=== PATIENT | female | born 1955 | race African-American/Black ===

== ENCOUNTER 2021-04-20 18:27 | Inpatient (IN) | payer BC ==
[2021-04-20] MEDS ORDERED: SODIUM CHLORIDE 0.9% 500 ML 500 ML IV ONE (18:55)
--- NOTE | 2021-04-20 19:26 | ED ---
General Adult HPI - General Chief complaint: Altered Mental Status Stated complaint: Altered Mental Status Time Seen by Provider: 04/20/21 18:48 Source: patient, EMS, RN notes reviewed, old records reviewed Mode of arrival: EMS Limitations: altered mental status - History of Present Illness Initial comments: 65-year-old female presenting with confusion. Patient had apparently left her home in [facility] and was found in the [facility] where she was. Patient is able to give some historical details but her timing is not appropriate. She denies any physical complaints. She is able to say state the year and president as well as her own name and age. She does seem confused though because she states that she had left work and that her son was able to strip picker the car and take it home. No reported fever. No vomiting. No headache or chest pain. According to EMS the patient had a stroke within the past several week. Patient denies this history. - Related Data Home Medications Medication Instructions Recorded Confirmed Aspirin EC [Ecotrin] 325 mg PO DAILY 04/20/21 04/20/21 Gabapentin [Neurontin] 300 mg PO TID 04/20/21 04/20/21 amLODIPine BES/OLMESARTAN MED 1 tab PO DAILY 04/20/21 04/20/21 [amLODIPine BES/OLMESARTAN MED 5-40 mg] metFORMIN HCL 850 mg PO BID 04/20/21 04/20/21 ursodioL [Ursodiol] 300 mg PO BID 04/20/21 04/20/21 Allergies Allergy/AdvReac Type Severity Reaction Status Date / Time No Known Allergies Allergy Verified 04/20/21 20:06 Review of Systems ROS Statement: Those systems with pertinent positive or pertinent negative responses have been documented in the HPI. ROS Other: All systems not noted in ROS Statement are negative. Past Medical History Past Medical History: CVA/TIA, Diabetes Mellitus, Hypertension History of Any Multi-Drug Resistant Organisms: None Reported Past Surgical History: Section Past Psychological History: No Psychological Hx Reported Smoking Status: Current every day smoker Past Alcohol Use History: Occasional Past Drug Use History: None Reported General Exam Limitations: altered mental status General appearance: alert, in no apparent distress Head exam: Present: atraumatic, normocephalic Eye exam: Present: normal appearance, PERRL ENT exam: Present: normal exam Neck exam: Present: normal inspection. Absent: tenderness, meningismus Respiratory exam: Present: normal lung sounds bilaterally. Absent: respiratory distress, wheezes, rales Cardiovascular Exam: Present: regular rate, normal rhythm GI/Abdominal exam: Present: soft. Absent: distended, tenderness, guarding, rebound Extremities exam: Present: normal inspection, normal capillary refill. Absent: pedal edema Neurological exam: Present: alert, CN II-XII intact. Absent: motor sensory deficit Psychiatric exam: Present: normal affect, normal mood Skin exam: Present: warm, dry, intact. Absent: cyanosis, diaphoretic Course Vital Signs 04/20/21 04/20/21 18:28 20:11 Temperature 99.0 F Pulse Rate 72 68 Respiratory 18 16 Rate Blood Pressure 139/81 132/84 O2 Sat by Pulse 99 Oximetry EKG Findings - EKG Comments: EKG Findings:: EKG: Normal sinus rhythm, left axis deviation, rate of 81, OR interval 162 with QRS duration 84, QTC 432 Medical Decision Making - Medical Decision Making 65-year-old female with confusion, history of recent stroke. The exact details surrounding this are not known. I did attempt to contact the patient's spouse and son with a number on the medical record but this number was disconnected. Patient is confused although she is answering some questions appropriately. She has a nonfocal neurologic exam. Head CT shows a subacute infarct which is consistent with a history reported of recent stroke. She has a normal CBC, normal CMP. She will be admitted for further evaluation and for the patient's safety. Urinalysis pending Case discussed with Dr. Monsivais - Lab Data Result diagrams: 04/20/21 19:13 04/20/21 19:13 Lab Results 04/20/21 04/20/21 04/20/21 Range/Units 19:13 19:13 19:13 WBC 9.8 (3.8-10.6) k/uL RBC 4.34 (3.80-5.40) m/uL Hgb 13.3 (11.4-16.0) gm/dL Hct 38.9 (34.0-46.0) % MCV 89.6 (80.0-100.0) fL MCH 30.7 (25.0-35.0) pg MCHC 34.3 (31.0-37.0) g/dL RDW 13.4 (11.5-15.5) % Plt Count 377 (150-450) k/uL MPV 7.7 Neutrophils % 58 % Lymphocytes % 29 % Monocytes % 6 % Eosinophils % 5 % Basophils % 1 % Neutrophils # 5.7 (1.3-7.7) k/uL Lymphocytes # 2.8 (1.0-4.8) k/uL Monocytes # 0.6 (0-1.0) k/uL Eosinophils # 0.5 (0-0.7) k/uL Basophils # 0.1 (0-0.2) k/uL PT 10.5 (9.0-12.0) sec INR 1.0 (<1.2) APTT 23.7 (22.0-30.0) sec Sodium 138 (137-145) mmol/L Potassium 4.3 (3.5-5.1) mmol/L Chloride 104 (98-107) mmol/L Carbon Dioxide 21 L (22-30) mmol/L Anion Gap 13 mmol/L BUN 20 H (7-17) mg/dL Creatinine 0.57 (0.52-1.04) mg/dL Est GFR (CKD-EPI)AfAm >90 (>60 ml/min/1.73 sqM) Est GFR (CKD-EPI)NonAf >90 (>60 ml/min/1.73 sqM) Glucose 155 H (74-99) mg/dL Calcium 10.4 H (8.4-10.2) mg/dL Total Bilirubin 0.3 (0.2-1.3) mg/dL AST 19 (14-36) U/L ALT 20 (4-34) U/L Alkaline Phosphatase 78 (38-126) U/L Total Protein 7.8 (6.3-8.2) g/dL Albumin 4.7 (3.5-5.0) g/dL Serum Alcohol <10 mg/dL Disposition Clinical Impression: Altered mental status, CVA (cerebral vascular accident) Disposition: ADMITTED IP TO THIS [facility] Condition: Stable Is patient prescribed a controlled substance at d/c from ED?: No Referrals: None,Stated [Primary Care Provider] - 1-2 days Decision to Admit Reason: Admit from EC Decision Date: 04/20/21 Decision Time: 20:31
--- NOTE | 2021-04-20 19:48 | CT ---
EXAMINATION TYPE: CT brain wo con DATE OF EXAM: 04/20/2021 COMPARISON: None HISTORY: There is hypodensity that measures 3.4 x 2 cm in the anterior right internal capsule and rig ht caudate nucleus. There is extension into the inferior right frontal lobe. There is no midline shif t. There is no significant mass effect. There is no sign of intracranial hemorrhage. Sella turcica ap pears normal. There is no evidence of posterior fossa mass. Calvarium is intact. IMPRESSION: Hypodense area with subacute infarct in the right internal capsule right caudate nucleus and inferior anterior right frontal lobe. CT DLP: 1047.4 mGycm Automated exposure control for dose reduction was used.
[2021-04-20 20:02] LABS: Basophils # (A) 0.1 k/uL (0-0.2); Basophils % (A) 1 %; Eosinophils # (A) 0.5 k/uL (0-0.7); Eosinophils % (A) 5 %; HCT 38.9 % (34.0-46.0); HGB 13.3 gm/dL (11.4-16.0); Lymphocytes # (A) 2.8 k/uL (1.0-4.8); Lymphocytes % (A) 29 %; MCH 30.7 pg (25.0-35.0); MCHC 34.3 g/dL (31.0-37.0); MCV 89.6 fL (80.0-100.0); Mean Platelet Volume 7.7; Monocytes # (A) 0.6 k/uL (0-1.0); Monocytes % (A) 6 %; Neutrophils # (A) 5.7 k/uL (1.3-7.7); Neutrophils % (A) 58 %; Platelet Count 377 k/uL (150-450); RBC 4.34 m/uL (3.80-5.40); RDW 13.4 % (11.5-15.5); WBC 9.8 k/uL (3.8-10.6)
[2021-04-20] MEDS ORDERED: ASPIRIN 325 MG TAB PO STA (20:16)
[2021-04-20 20:24] LABS: Partial Thromboplastin Time 23.7 sec (22.0-30.0); Prothrombin Time 10.5 sec (9.0-12.0)
[2021-04-20 20:28] LABS: ALT 20 U/L (4-34); AST 19 U/L (14-36); African American GFR (CKD) >90 (>60 ml/min/1.73 sqM); Albumin 4.7 g/dL (3.5-5.0); Alcohol <10 mg/dL; Alkaline Phosphatase 78 U/L (38-126); Anion Gap 13 mmol/L; Blood Urea Nitrogen 20 mg/dL (7-17); Calcium 10.4 mg/dL (8.4-10.2); Carbon Dioxide 21 mmol/L (22-30); Chloride 104 mmol/L (98-107); Glucose 155 mg/dL (74-99); Non-African American GFR(CKD) >90 (>60 ml/min/1.73 sqM); Potassium 4.3 mmol/L (3.5-5.1); Sodium 138 mmol/L (137-145); Total Bilirubin 0.3 mg/dL (0.2-1.3); Total Protein 7.8 g/dL (6.3-8.2)
[2021-04-20 20:35] LABS: Appearance,Urine Cloudy (Clear); Bilirubin,Urine Negative (Negative); Blood,Urine Small (Negative); Budding Yeast,Urine Rare /hpf; Color,Urine Yellow; Glucose,Urine (UA) Negative (Negative); Hyaline Casts,Urine 5 /lpf (0-2); Ketones,Urine Negative (Negative); Leukocyte Esterase,Urine Large (Negative); Mucus,Urine Occasional /hpf; Nitrite,Urine Negative (Negative); PH, Urine 5.5 (5.0-8.0); Protein,Urine Trace (Negative); RBC,Urine 45 /hpf (0-5); Squamous Epithelial Cell,Urine 3 /hpf (0-4); Urobilinogen,Urine <2.0 mg/dL (<2.0); WBC,Urine 73 /hpf (0-5)
[2021-04-20 20:40] LABS: Amphetamine Screen,Urine Not Detected (NotDetected); Barbiturate Screen,Urine Not Detected (NotDetected); Benzodiazepines Screen,Urine Not Detected (NotDetected); Cocaine Screen,Urine Not Detected (NotDetected); Methadone Screen, Urine Not Detected (NotDetected); Opiate Screen,Urine Not Detected (NotDetected); Oxycodone Screen, Urine Not Detected (NotDetected); Phencyclidine Screen,Urine Not Detected (NotDetected); Tricyclic Antidepressant,Urine Not Detected (NotDetected); Urn Cannabinoid Scrn Not Detected (NotDetected)
[2021-04-20] MEDS: SODIUM CHLORIDE 0.9% 1,000 ML IV SCH (20:49)
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
[2021-04-21 05:56] LABS: Glucose,Whole Blood 136 mg/dL (75-99)
[2021-04-21] MEDS: INSULIN ASPART (NovoLOG) 100 UNIT/ML VIAL SQ SCH ×4 (06:47→21:01)
[2021-04-21 07:49] LABS: Basophils % (A) 1 %; Eosinophils # (A) 0.6 k/uL (0-0.7); Eosinophils % (A) 7 %; HCT 34.8 % (34.0-46.0); HGB 11.6 gm/dL (11.4-16.0); Lymphocytes # (A) 2.9 k/uL (1.0-4.8); Lymphocytes % (A) 37 %; MCH 30.1 pg (25.0-35.0); MCHC 33.5 g/dL (31.0-37.0); MCV 90.1 fL (80.0-100.0); Monocytes # (A) 0.5 k/uL (0-1.0); Monocytes % (A) 7 %; Neutrophils # (A) 3.6 k/uL (1.3-7.7); Neutrophils % (A) 47 %; Platelet Count 345 k/uL (150-450); RBC 3.86 m/uL (3.80-5.40); RDW 13.4 % (11.5-15.5); WBC 7.7 k/uL (3.8-10.6)
[2021-04-21 08:02] LABS: ALT 16 U/L (4-34); AST 19 U/L (14-36); African American GFR (CKD) >90 (>60 ml/min/1.73 sqM); Albumin 3.9 g/dL (3.5-5.0); Alkaline Phosphatase 66 U/L (38-126); Anion Gap 7 mmol/L; Blood Urea Nitrogen 16 mg/dL (7-17); Calcium 9.6 mg/dL (8.4-10.2); Carbon Dioxide 22 mmol/L (22-30); Chloride 111 mmol/L (98-107); Glucose 139 mg/dL (74-99); Non-African American GFR(CKD) >90 (>60 ml/min/1.73 sqM); Potassium 3.9 mmol/L (3.5-5.1); Sodium 140 mmol/L (137-145); Total Bilirubin 0.4 mg/dL (0.2-1.3); Total Protein 6.7 g/dL (6.3-8.2)
[2021-04-21] MEDS: LOSARTAN 50 MG TAB PO SCH (08:33)
[2021-04-21] MEDS: GABAPENTIN 300 MG CAP PO SCH ×3 (08:33→21:01)
[2021-04-21] MEDS: ASPIRIN 81 MG PO SCH (08:33)
[2021-04-21] MEDS: amLODIPine 5 MG TAB PO SCH (08:34)
[2021-04-21] MEDS: SODIUM CHLORIDE 0.9% 1,000 ML IV SCH (08:36)
[2021-04-21] MEDS ORDERED: levETIRAcetam IV 1,000 MG in SALINE 1 100ML.BAG IVPB STA (08:59)
[2021-04-21] MEDS ORDERED: ASPIRIN 325 MG TAB PO SCH ×2 (09:00)
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
[2021-04-21 10:21] LABS: T4, Free (Free Thyroxine) 1.67 ng/dL (0.78-2.19)
[2021-04-21 11:37] LABS: Glucose,Whole Blood 137 mg/dL (75-99)
[2021-04-21 12:19] LABS: Chol/HDL Ratio 8.46; Cholesterol 220 mg/dL (0-200); LDL Cholesterol,Calculated 150.6 mg/dL (0.0-131.0)
--- NOTE | 2021-04-21 12:38 | P.PN ---
Subjective Progress Note Date: 04/21/21 No new complaints. Pt is alert and oriented x 3. Pending EEG, Echo, MRI. Objective - Vital Signs Vital signs: Vital Signs Temp 98.4 F 04/21/21 08:00 Pulse 52 L 04/21/21 11:38 Resp 18 04/21/21 11:38 BP 103/60 04/21/21 11:38 Pulse Ox 97 04/21/21 11:38 Intake & Output 04/20/21 04/21/21 04/21/21 18:59 06:59 18:59 Weight 54.431 kg 51.25 kg Other: Voiding Method Toilet Toilet # Voids 0 - Exam Gen: awake, alert HEENT: normocephalic, atraumatic, good hearing acuity, moist mucous membranes Resp: good air exchange, breathing comfortably with no accessory muscle use CVS: good distal perfusion x 4, GI: soft, NTTP, ND : no SPT, no CVAT, toscano catheter not present MSK: no pitting edema, no clubbing Neuro: non-focal, moving all extremities Psych: cooperative, euthymic mood - Labs CBC & Chem 7: 04/21/21 06:58 04/21/21 06:58 Labs: Abnormal Lab Results - Last 24 Hours (Table) 04/20/21 04/20/21 04/20/21 Range/Units 19:13 19:13 19:13 Chloride (98-107) mmol/L Carbon Dioxide 21 L (22-30) mmol/L BUN 20 H (7-17) mg/dL Creatinine (0.52-1.04) mg/dL Glucose 155 H (74-99) mg/dL POC Glucose (mg/dL) (75-99) mg/dL Calcium 10.4 H (8.4-10.2) mg/dL Triglycerides (0.0-149.0) mg/dL Cholesterol (0-200) mg/dL LDL Cholesterol, Calc (0.0-131.0) mg/dL VLDL Cholesterol, Calc (5.00-40.00) mg/dL HDL Cholesterol (40.0-60.0) mg/dL TSH <0.015 L (0.465-4.680) mIU/L Urine Appearance Cloudy H (Clear) Urine Protein Trace H (Negative) Urine Blood Small H (Negative) Ur Leukocyte Esterase Large H (Negative) Urine RBC 45 H (0-5) /hpf Urine WBC 73 H (0-5) /hpf Hyaline Casts 5 H (0-2) /lpf Urine Mucus Occasional H (None) /hpf Urine Yeast (Budding) Rare H (None) /hpf 04/21/21 04/21/21 04/21/21 Range/Units 05:53 06:58 11:33 Chloride 111 H (98-107) mmol/L Carbon Dioxide (22-30) mmol/L BUN (7-17) mg/dL Creatinine 0.42 L (0.52-1.04) mg/dL Glucose 139 H (74-99) mg/dL POC Glucose (mg/dL) 136 H 137 H (75-99) mg/dL Calcium (8.4-10.2) mg/dL Triglycerides 217.0 H (0.0-149.0) mg/dL Cholesterol 220 H (0-200) mg/dL LDL Cholesterol, Calc 150.6 H (0.0-131.0) mg/dL VLDL Cholesterol, Calc 43.40 H (5.00-40.00) mg/dL HDL Cholesterol 26.0 L (40.0-60.0) mg/dL TSH (0.465-4.680) mIU/L Urine Appearance (Clear) Urine Protein (Negative) Urine Blood (Negative) Ur Leukocyte Esterase (Negative) Urine RBC (0-5) /hpf Urine WBC (0-5) /hpf Hyaline Casts (0-2) /lpf Urine Mucus (None) /hpf Urine Yeast (Budding) (None) /hpf Microbiology - Last 24 Hours (Table) 04/20/21 19:13 Urine Culture - Preliminary Urine,Voided Assessment and Plan Assessment: Delirium Subacute Ischemic Stroke -Admit to telemetry -Neurochecks -Neurology consult -Echo pending -Carotid ultrasound pending -MRI of the brain pending -Aspirin, statin -PT/OT -EEG pending -Keppra twice a day DM Type II HTN -Home medications reviewed and reconciled -Continue amlodipine, losartan -Continue gabapentin -Hold metformin; Accu-Cheks qAC/HS, low-dose sliding scale insulin CODE STATUS: Full code DVT prophylaxis: Mechanical Anticipated length of stay more than [address]: Pending clinical course
--- NOTE | 2021-04-21 13:03 | US ---
EXAMINATION TYPE: US carotid duplex BILAT DATE OF EXAM: 04/21/2021 COMPARISON: NONE CLINICAL HISTORY: 65-year-old female subacute stroke. General Manager In Training notes: Exam done portable. EXAM MEASUREMENTS: RIGHT: Peak Systolic Velocity (PSV) cm/sec ----- Right CCA: 28.9 ----- Right ICA: 65.6 ----- Right ECA: 40.4 ICA/CCA ratio: 2.3 RIGHT: End Diastole cm/sec ----- Right CCA: 6.8 ----- Right ICA: 22.1 ----- Right ECA: 7.9 LEFT: Peak Systolic Velocity (PSV) cm/sec ----- Left CCA: 64.0 ----- Left ICA: 86.2 ----- Left ECA: 25.2 ICA/CCA ratio: 1.3 LEFT: End Diastole cm/sec ----- Left CCA: 18.3 ----- Left ICA: 35.8 ----- Left ECA: 5.9 VERTEBRALS (direction of flow): Right Vertebral: Antegrade Left Vertebral: Antegrade Rhythm: Normal General Manager In Training notes: No elevated velocities. Right ICA/CCA ratio 2.3 Mild atherosclerotic change at both bifurcations. IMPRESSION: No hemodynamically significant internal carotid artery stenosis on either side. Criteria for Assigning % of Stenosis / Diameter reduction (Estimation based on the indirect measurements of the internal carotid artery velocities (ICA PSV). 1. Normal (no stenosis)=ICA PSV < 125 cm/s: ratio < 2.0: ICA EDV<40 cm/s. 2. Less than 50% stenosis=ICA PSV < 125 cm/s: ratio < 2.0: ICA EDV<40 cm/s. 3. 50 to 69% stenosis=ICA PSV of 125 to 230 cm/s: ration 2.0 ? 4.0: ICA EDV 40-100 cm/s. 4. Greater than 70% stenosis to near occlusion= ICA PSV > 230 cm/s: ratio > 4.0: ICA EDV > 100 cm/s. 5. Near occlusion= ICA PSV velocities may be low or undetectable: variable ratio and ICA EDV. 6. Total occlusion=unable to detect flow.
--- NOTE | 2021-04-21 13:32 | ECHOF ---
Referral Reason:subacute stroke MEASUREMENTS -------- HEIGHT: 152.4 cm WEIGHT: 50.8 kg BP: IVSd: 1.0 cm (0.6 - 1.1) LVIDd: 3.8 cm (3.9 - 5.3) LVPWd: 1.3 cm (0.6 - 1.1) IVSs: 1.3 cm LVIDs: 3.0 cm LVPWs: 1.0 cm LAESV Index (A-L): 25.18 ml/m MV EXCURSION: 12.842 mm (> 18.000) MV EF SLOPE: 72 mm/s (70 - 150) EPSS: 0.3 cm MV E Guru: 0.69 m/s MV DecT: 211 ms MV A Guru: 1.00 m/s MV E/A Ratio: 0.69 AV maxP.60 mmHg AV meanP.75 mmHg RAP: 5.00 mmHg RVSP: 28.50 mmHg FINDINGS -------- Sinus rhythm. This was a technically good study. LV size, wall thickness and systolic function are normal, with an EF greater than 55%. The left phil tricular size is normal. The right ventricle is normal in size. The left atrial size is normal. The right atrial size is normal. There is mild aortic stenosis present. Peak/mean gradient across the Aortic Valve is 18.60mmHg / 9. 75mmHg. Mild mitral annular calcification present. Mild mitral regurgitation is present. Mild tricuspid regurgitation present. Right ventricular systolic pressure is normal at < 35 mmHg. The pulmonic valve was not well visualized. There is no pericardial effusion. CONCLUSIONS -------- 1. LV size, wall thickness and systolic function are normal, with an EF greater than 55%. 2. The left ventricular size is normal. 3. The right ventricle is normal in size. 4. The left atrial size is normal. 5. The right atrial size is normal. 6. There is mild aortic stenosis present. 7. Peak/mean gradient across the Aortic Valve is 18.60mmHg / 9.75mmHg. 8. Mild mitral annular calcification present. 9. Mild mitral regurgitation is present. 10. Mild tricuspid regurgitation present. 11. The pulmonic valve was not well visualized. 12. There is no pericardial effusion. PORTABLE TRACKMAN: Natalie Andrews RDCS
[2021-04-21 15:39] LABS: Folate, Serum 20.5 ng/mL
--- NOTE | 2021-04-21 15:44 | MR ---
EXAMINATION TYPE: MR brain wo/w con DATE OF EXAM: 04/21/2021 COMPARISON: CT brain 04/20/2021 HISTORY: Altered mental status, Hx of stroke, R/o mass TECHNIQUE: Multiplanar, multisequence images of the brain and brainstem is performed without and with IV contras t, utilizing 5 mL intravenous Gadavist . FINDINGS: Diffusion weighted images demonstrate multiple areas of diffusion restriction and enhanceme nt, most notably within the right basal ganglia extending into the right frontal lobe and right front al cortex. Area measures approximately 3.5 cm in the right frontal lobe and 2.6 cm in the right basal ganglia. Additional vague areas of diffusion restriction and enhancement in the white matter adjacen t to the right lateral ventricle. A smaller 6 mm area of diffusion restriction and enhancement within the deep left white matter adjacent to the posterior margin of the body of the left lateral ventricl e. There is mass effect and compression of the anterior horn of the right ventricle. Ventricular syst em is similar size relative to the recent CT scan. Dural venous sinuses enhance normally. Vertebral basilar and carotid systems appear patent. Mild generalized degenerative change and multiple focal areas of nonspecific white matter changes mos t typical of remote microvascular ischemia. Changes of chronic sinusitis are noted in the orbits are symmetric. Midline structures demonstrate normal morphology. The craniocervical junction appears within normal limits. Vague enhancement in the left cerebellar hemisphere on image #16 2 small to characterize may represen t additional focus of pathologic enhancement and possible subacute ischemia. Follow-up to resolution recommended to exclude underlying neoplastic process. IMPRESSION: 1. Multiple areas of diffusion restriction and enhancement involving the right frontal lobe, right ba virgen ganglia, and left parietal lobe and questionably within the left cerebellum. Constellation of fin dings favor ischemia although neoplasm not excluded. Favor subacute ischemia. There is compression of the frontal horn of right lateral ventricle. Comparison with the outside exam is recommended to eval uate for any change in appearance relative to the prior exam and help in differentiating the possibil ity of subacute ischemia versus neoplastic process. Short-term follow-up MRI recommended. Case was d iscussed with Dr. Mckeon. 2. Degenerative and nonspecific white matter changes most typical remote ischemia.
[2021-04-21 16:20] LABS: Hemoglobin A1C 8.1 % (4.0-6.0)
[2021-04-21 16:43] LABS: Glucose,Whole Blood 140 mg/dL (75-99)
[2021-04-21] MEDS: CLOPIDOGREL 75 MG TAB PO SCH (17:26)
--- NOTE | 2021-04-21 17:37 | EEG ---
ELECTROENCEPHALOGRAM REPORT DATE OF SERVICE: 04/21/2021. CLINICAL HISTORY: This is a 65-year-old woman with recent history of stroke over the right frontal region that presented to the emergency department for confusion. This video EEG is obtained to evaluate for seizure epileptiform activity. RELEVANT MEDICATION: Keppra. EEG TYPE: A routine 21 channel EEG was performed with video using the 10/20 electrode lead system. DESCRIPTION: Wakefulness and drowsiness are obtained. During wakefulness, there is a posterior dominant rhythm of low to moderate voltage, reactive, well modulated, 9-10 hertz activity. During drowsiness, there is slowing and attenuation of background activity. There is no physiological stage 2 sleep architecture. There is occasional delta/theta slowing over the right frontal temporal leads. Interictal and ictal is none. ACTIVATION PROCEDURES: Photic stimulation did not evoke a posterior driving response. Hyperventilation is not performed. CLINICAL INTERPRETATION: This is an abnormal routine EEG. There is focal slowing over the right frontal temporal derivative which is consistent with the patient history of recent stroke. There are no focal slowing, epileptiform discharges or seizure on the EEG. Otherwise, the patient's background is normal. Clinical correlation is recommended. MMODL / IJN: [id number] / MTDD
[2021-04-21 20:05] LABS: Glucose,Whole Blood 195 mg/dL (75-99)
[2021-04-21] MEDS ORDERED: ATORVASTATIN 40 MG TAB PO SCH (21:00)
[2021-04-21] MEDS: ursodioL 300 MG CAP PO SCH (21:01)
[2021-04-21] MEDS: levETIRAcetam 500 MG TAB PO SCH (21:01)
[2021-04-21] MEDS: ATORVASTATIN 80 MG TAB PO SCH (21:01)
[2021-04-22 05:58] LABS: Glucose,Whole Blood 154 mg/dL (75-99)
[2021-04-22] MEDS: INSULIN ASPART (NovoLOG) 100 UNIT/ML VIAL SQ SCH ×4 (06:53→21:23)
[2021-04-22] MEDS: GABAPENTIN 300 MG CAP PO SCH ×3 (08:40→21:23)
[2021-04-22] MEDS: ursodioL 300 MG CAP PO SCH ×2 (08:40→21:23)
[2021-04-22] MEDS: CLOPIDOGREL 75 MG TAB PO SCH (08:40)
[2021-04-22] MEDS: levETIRAcetam 500 MG TAB PO SCH ×2 (08:40→21:23)
[2021-04-22] MEDS: ASPIRIN 81 MG PO SCH (08:40)
[2021-04-22] MEDS: SODIUM CHLORIDE 0.9% 1,000 ML IV SCH ×2 (08:41→17:01)
[2021-04-22] MEDS: LOSARTAN 50 MG TAB PO SCH (08:43)
[2021-04-22] MEDS: amLODIPine 5 MG TAB PO SCH (08:43)
--- NOTE | 2021-04-22 10:11 | P.PN ---
Subjective Progress Note Date: 04/22/21 No new complaints. Pending Cardiology consult for consideration of MARCO. Objective - Vital Signs Vital signs: Vital Signs Temp 99.0 F 04/22/21 08:36 Pulse 61 04/22/21 08:36 Resp 17 04/22/21 08:36 BP 99/56 04/22/21 08:36 Pulse Ox 100 04/22/21 08:36 Intake & Output 04/21/21 04/22/21 04/22/21 18:59 06:59 18:59 Intake Total 620 150 Balance 620 150 Weight 51.8 kg Intake: IV 150 Sodium Chloride 0.9% 1, 150 000 ml @ 75 mls/hr IV . [id number] [facility] Rx#:[id number] Oral 620 Other: Voiding Method Toilet Toilet # Voids 1 - Exam Gen: awake, alert HEENT: normocephalic, atraumatic, good hearing acuity, moist mucous membranes Resp: good air exchange, breathing comfortably with no accessory muscle use CVS: good distal perfusion x 4, GI: soft, NTTP, ND : no SPT, no CVAT, toscano catheter not present MSK: no pitting edema, no clubbing Neuro: non-focal, moving all extremities Psych: cooperative, euthymic mood - Labs CBC & Chem 7: 04/21/21 06:58 04/21/21 06:58 Labs: Abnormal Lab Results - Last 24 Hours (Table) 04/20/21 04/21/21 04/21/21 Range/Units 19:13 06:58 06:58 POC Glucose (mg/dL) (75-99) mg/dL Hemoglobin A1c 8.1 H (4.0-6.0) % Triglycerides 217.0 H (0.0-149.0) mg/dL Cholesterol 220 H (0-200) mg/dL LDL Cholesterol, Calc 150.6 H (0.0-131.0) mg/dL VLDL Cholesterol, Calc 43.40 H (5.00-40.00) mg/dL HDL Cholesterol 26.0 L (40.0-60.0) mg/dL Vitamin B12 1353.0 H (200.0-944.0) pg/mL 04/21/21 04/21/21 04/21/21 Range/Units 11:33 16:41 20:03 POC Glucose (mg/dL) 137 H 140 H 195 H (75-99) mg/dL Hemoglobin A1c (4.0-6.0) % Triglycerides (0.0-149.0) mg/dL Cholesterol (0-200) mg/dL LDL Cholesterol, Calc (0.0-131.0) mg/dL VLDL Cholesterol, Calc (5.00-40.00) mg/dL HDL Cholesterol (40.0-60.0) mg/dL Vitamin B12 (200.0-944.0) pg/mL 04/22/21 Range/Units 05:56 POC Glucose (mg/dL) 154 H (75-99) mg/dL Hemoglobin A1c (4.0-6.0) % Triglycerides (0.0-149.0) mg/dL Cholesterol (0-200) mg/dL LDL Cholesterol, Calc (0.0-131.0) mg/dL VLDL Cholesterol, Calc (5.00-40.00) mg/dL HDL Cholesterol (40.0-60.0) mg/dL Vitamin B12 (200.0-944.0) pg/mL Microbiology - Last 24 Hours (Table) 04/20/21 19:13 Urine Culture - Preliminary Urine,Voided Assessment and Plan Assessment: Delirium, resolved Subacute Ischemic Stroke -Admit to telemetry -Neurochecks -Neurology consult -Echo --> EF 55%, no WMA, no PFO, no diastolic dysfunction -Carotid ultrasound --> no significant stenosis -MRI of the brain --> ischemic stroke (favored) vs neoplasm of the right frontal lobe, right basal ganglia, left parietal, left cerebellum -obtaining prior images for comparison to determine ischemic stroke vs neoplasm -needs short term f/u with MRI -EEG --> negative for epileptic focus -Aspirin, statin -PT/OT -Keppra twice a day -cardiology consulted for consideration of MARCO, pending DM Type II HTN -Home medications reviewed and reconciled -Continue amlodipine, losartan -Continue gabapentin -Hold metformin; Accu-Cheks qAC/HS, low-dose sliding scale insulin CODE STATUS: Full code DVT prophylaxis: Mechanical Anticipated length of stay more than [address]: Pending clinical course
[2021-04-22 11:49] LABS: Glucose,Whole Blood 143 mg/dL (75-99)
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
[2021-04-22 16:42] LABS: Glucose,Whole Blood 202 mg/dL (75-99)
[2021-04-22 20:00] LABS: Glucose,Whole Blood 204 mg/dL (75-99)
[2021-04-22] MEDS: ATORVASTATIN 80 MG TAB PO SCH (21:23)
--- NOTE | 2021-04-22 22:34 | MR ---
EXAMINATION TYPE: MR angio head wo con DATE OF EXAM: 04/22/2021 COMPARISON: None HISTORY: CVA, ?Intracranial ICA stenosis vs vasculitis MR angiographic images were obtained of the intracerebral arterial circulation. There is arterial flow in the distal internal carotid arteries. There is arterial flow in the vertebr obasilar artery system. There is arterial flow in the anterior middle and posterior cerebral arteries . I see no evidence of intracranial arterial stenosis. There is no evidence of an aneurysm. The left posterior cerebral artery appears to fill mostly through the left posterior communicating artery. The remainder of exam is unremarkable. IMPRESSION: Negative exam. No evidence of intracranial arterial aneurysm or dissection or stenosis.
[2021-04-23] MEDS: SODIUM CHLORIDE 0.9% 1,000 ML IV SCH ×2 (04:36→10:44)
[2021-04-23 06:10] LABS: Glucose,Whole Blood 163 mg/dL (75-99)
[2021-04-23] MEDS: INSULIN ASPART (NovoLOG) 100 UNIT/ML VIAL SQ SCH ×4 (06:33→20:49)
[2021-04-23] MEDS: GABAPENTIN 300 MG CAP PO SCH ×3 (08:03→20:48)
[2021-04-23] MEDS: ursodioL 300 MG CAP PO SCH ×2 (08:03→21:10)
[2021-04-23] MEDS: CLOPIDOGREL 75 MG TAB PO SCH (08:03)
[2021-04-23] MEDS: levETIRAcetam 500 MG TAB PO SCH ×2 (08:03→20:48)
[2021-04-23] MEDS: ASPIRIN 81 MG PO SCH (08:03)
[2021-04-23] MEDS ORDERED: SODIUM CHLORIDE 0.9% 1,000 ML IV SCH (09:15)
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
[2021-04-23 11:49] LABS: Glucose,Whole Blood 122 mg/dL (75-99)
[2021-04-23] MEDS: LOSARTAN 50 MG TAB PO SCH (13:36)
[2021-04-23] MEDS: amLODIPine 5 MG TAB PO SCH (13:55)
[2021-04-23 13:58] LABS: C-ANCA <1:20 Titer (<1:20)
--- NOTE | 2021-04-23 14:48 | CT ---
EXAMINATION TYPE: CT chest wo con DATE OF EXAM: 04/23/2021 COMPARISON: None HISTORY: Shortness of breath. CT DLP: 184.6 mGycm, Automated exposure control for dose reduction was used. CONTRAST: Performed injected with 0 mL of Isovue 300. TECHNIQUE: Axial images were obtained at 5 mm thick sections. Reconstructed images are reviewed on isocket computer in the coronal plane. FINDINGS: Portion of the thyroid visualized is normal. There is a grouping of 3 suspicious nodules in the right lower lobe measuring approximately 0.3 cm ea ch. Series 204 images 35-36. There is a right upper lung field nodularity with some spiculation measu ring 0.4 cm. Series 204 image 18. An additional spiculated nodularity is measuring 0.6 cm in the righ t middle lobe. Series 204 image 34. Findings are suspicious for potential neoplasm. Recommend PET CT for additional evaluation. There is a 1.2 cm prominent pretracheal lymph node just above the level of the ricky. The ascending aorta diameter at the level of the main pulmonary artery is 3.3 cm. The main pulmonary artery diame ter at the bifurcation is 3.[address] sections are obtained through the upper abdomen. There is a 2.1 cm cyst superior pole left kidney. IMPRESSIONS: 1. Several right-sided nodules suspicious for neoplasm. PET/CT recommended for confirmation. 2. Prominent 1.2 cm pretracheal lymph node
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
--- NOTE | 2021-04-23 15:15 | P.PN ---
<Kristopher Tompkins - Last Filed: 04/23/21 13:28> Subjective Progress Note Date: 04/23/21 Hospital course: Patient is a 65-year-old female with a past medical history of hypertension, t ype II ztv-[id number] diabetes mellitus, recent CVA, and nicotine dependence. Patient was admitted on 04/20/21 secondary to acute delirium after reportedly being found randomly in someone's driveway in [facility] when she lives in [facility] and patient was unable to provide any history or memory leading up to how this exactly happened. Patient was recently hospitalized approximately two weeks ago secondary to memory issues and forgetfulness and was diagnosed with an acute CVA at [facility] and was later discharged home. Patient was admitted under our services with acute delirium. Urinalysis positive for infection. CT brain was negative for acute intercranial hemorrhage showing a subacute infarct of the right frontal lobe. EKG showing normal sinus rhythm at 81 bpm with no noted T-wave or ST abnormalities. Echocardiogram completed showing a normal ejection fraction greater than 55% with no significant valvular abnormalities and only mild aortic stenosis reported. Carotid Dopplers showing no hemodynamically significant stenosis. MRI brain revealing multiple areas of diffusion restriction and enhancement involving the right frontal lobe, right basal ganglia, and left parietal lobe and questionably within the left cerebellum; these findings were reported to favor ischemia although neoplasm cannot be excluded; likely subacute ischemia resulting from recent acute CVA however patient will need a short-term follow-up MRI after discharge. EEG completed resulting as an abnormal routine EEG revealing slowing over the right frontal temporal derivative consistent with patient's history of recent stroke. MRA of head negative for acute intercranial aneurysm, dissection, or stenosis. Patient scheduled for loop recorder placement with cardiology today and plan for discharge tomorrow. CT chest revealing several right-sided nodule suspicious for neoplasm and a prominent 1.2 cm pretracheal lymph node. Physical exam: Patient seen and fully evaluated at the bedside this morning. Patient alert and oriented to person, place, time, and situation upon assessment. She denies having any complaints at this time including headache, lightheadedness, dizziness, changes in her vision or hearing, chest pain or palpitations, shortness of breath, abdominal pain, nausea, vomiting, or any other complaints at this time. General: non toxic, no distress, appears at stated age Derm: warm, dry Head: atraumatic, normocephalic, symmetric Eyes: EOMI, no lid lag, anicteric sclera Mouth: no lip lesion, mucus membranes moist Cardiovascular: S1S2 reg, no murmur, positive posterior tibial pulses bilaterally, cap refill less than 2 seconds. Lungs: CTA bilateral, no rhonchi, no rales, or wheezes noted. No accessory muscle use Abdominal: soft, nontender to palpation, no guarding, no appreciable organomegaly Ext: no gross muscle atrophy, no edema, no contractures Neuro: GCS 15. Speech clear. CN II-XI grossly intact, no focal neuro deficits noted at this time. Psych: Alert, oriented, appropriate affect Plan of care: Delirium, resolved possibly secondary to new onset seizure versus acute infection with UTI -Seizure precautions, aspiration precautions, and fall precautions in place. -Continued Treatment of underlying infection with IV antibiotics: Rocephin. -Neurology following. -Patient informed of [place] [employer] law stating no driving until seizure free for 6 months. Patient also instructed to avoid climbing ladders, operating dangerous or heavy machinery or unsupervised swimming until seizure free for 6 months. -Continue Keppra 500 mg every 12 hours. Intracranial lesions with several right sided pulmonary lesions suspicious for malignancy -CT chest revealing several right-sided nodule suspicious for neoplasm and a prominent 1.2 cm pretracheal lymph node. -MRI brain revealing multiple areas of diffusion restriction and enhancement involving the right frontal lobe, right basal ganglia, and left parietal lobe and questionably within the left cerebellum; these findings were reported to favor ischemia although neoplasm cannot be excluded; likely subacute ischemia resulting from recent acute CVA however patient will need a short-term follow-up MRI after discharg oncology e. -Consult placed for Dr. Mckeon, pulmonology and Dr. Britton, oncology Subacute stroke -CT of her brain which was negative for acute intercranial hemorrhage showing a subacute infarct of the right frontal lobe. -EKG showing normal sinus rhythm at 81 bpm with no noted T-wave or ST abnormalities. -Echocardiogram completed showing a normal ejection fraction greater than 55% with no significant valvular abnormalities and only mild aortic stenosis reported. -Carotid Dopplers showing no hemodynamically significant stenosis. -MRI brain revealing multiple areas of diffusion restriction and enhancement involving the right frontal lobe, right basal ganglia, and left parietal lobe and questionably within the left cerebellum; these findings were reported to favor ischemia although neoplasm cannot be excluded; likely subacute ischemia resulting from recent acute CVA however patient will need a short-term follow-up MRI after discharge. -EEG completed resulting as an abnormal routine EEG revealing slowing over the right frontal temporal derivative consistent with patient's history of recent stroke. -MRA of head negative for acute intercranial aneurysm, dissection, or stenosis. -Neurology following -Continue aspirin and atorvastatin -PT/OT -Continue Keppra 500 mg every 12 hours. -Cardiology following, plans for loop recorder placement today. UTI -Urinalysis positive for protein, blood, leukocytes, 45 RBCs, and 73 WBCs. -Urine culture pending. -Continue treatment with IV antibiotics: Rocephin Hyperlipidemia -Triglycerides 217.0, total cholesterol 220, LDL 150.6, VLDL 43.4, and HDL of 26. -Patient started on atorvastatin 80 mg nightly. -Heart healthy diet. Hypertension -Monitor vital signs and continue daily medication management. CODE STATUS: Full code DVT prophylaxis: SCDs Discussed with: Patient, case management and RN Anticipated discharge date: Possible discharge tomorrow Anticipated discharge place: SNF versus home with home care, patient currently declining senior living facility and home care at this time. Case management meeting with son. A total of 45 minutes was spent on the care of this complex patient more than 50% of the time was spent in counseling and care coordination. Objective - Vital Signs Vital signs: Vital Signs Temp 98.0 F 04/23/21 08:00 Pulse 56 L 04/23/21 08:00 Resp 16 04/23/21 08:00 BP 114/56 04/23/21 08:00 Pulse Ox 100 04/23/21 08:00 Intake & Output 04/22/21 04/23/21 04/23/21 18:59 06:59 18:59 Intake Total 360 480 Balance 360 480 Weight 52.1 kg Intake: Oral 360 480 Other: Voiding Method Toilet Toilet # Voids 2 1 - Labs CBC & Chem 7: 04/21/21 06:58 04/21/21 06:58 Labs: Abnormal Lab Results - Last 24 Hours (Table) 04/21/21 04/22/21 04/22/21 Range/Units 06:58 11:48 14:29 ESR 21 H (0-20) mm/hr POC Glucose (mg/dL) 143 H (75-99) mg/dL RBC Folate 815 H (280 - 791) ng/mL 04/22/21 04/22/21 04/23/21 Range/Units 16:32 19:54 06:09 ESR (0-20) mm/hr POC Glucose (mg/dL) 202 H 204 H 163 H (75-99) mg/dL RBC Folate (280 - 791) ng/mL <Makenna Lyon - Last Filed: 04/23/21 19:49> Objective - Vital Signs Vital signs: Vital Signs Temp 98.2 F 04/23/21 16:00 Pulse 51 L 04/23/21 16:00 Resp 16 04/23/21 16:00 BP 121/58 04/23/21 16:00 Pulse Ox 97 04/23/21 16:00 Intake & Output 04/23/21 04/23/21 04/24/21 06:59 18:59 06:59 Intake Total 960 Balance 960 Weight 52.1 kg Intake: Oral 960 Other: Voiding Method Toilet # Voids 1 1 - Labs CBC & Chem 7: 04/21/21 06:58 04/21/21 06:58 Labs: Abnormal Lab Results - Last 24 Hours (Table) 04/22/21 04/23/21 04/23/21 Range/Units 19:54 06:09 11:46 POC Glucose (mg/dL) 204 H 163 H 122 H (75-99) mg/dL 04/23/21 Range/Units 16:50 POC Glucose (mg/dL) 219 H (75-99) mg/dL Microbiology - Last 24 Hours (Table) 04/20/21 19:13 Urine Culture - Final Urine,Voided Enterococcus faecium Assessment and Plan Assessment: Kristopher Tompkins NP rendered care for this patient independently, reviewed the find ings and plan as documented in the note above. I did not physically speak with or examine the patient on this date.
[2021-04-23 16:52] LABS: Glucose,Whole Blood 219 mg/dL (75-99)
[2021-04-23 20:30] LABS: Glucose,Whole Blood 165 mg/dL (75-99)
[2021-04-23] MEDS: ATORVASTATIN 80 MG TAB PO SCH (20:48)
[2021-04-24 06:05] LABS: Glucose,Whole Blood 163 mg/dL (75-99)
[2021-04-24] MEDS: SODIUM CHLORIDE 0.9% 1,000 ML IV SCH (06:29)
[2021-04-24] MEDS: INSULIN ASPART (NovoLOG) 100 UNIT/ML VIAL SQ SCH ×4 (06:30→20:57)
[2021-04-24 07:33] LABS: HCT 36.2 % (34.0-46.0); HGB 12.3 gm/dL (11.4-16.0); MCH 30.6 pg (25.0-35.0); MCHC 33.9 g/dL (31.0-37.0); MCV 90.3 fL (80.0-100.0); Mean Platelet Volume 7.6; Platelet Count 306 k/uL (150-450); RBC 4.01 m/uL (3.80-5.40); RDW 13.2 % (11.5-15.5); WBC 8.2 k/uL (3.8-10.6)
[2021-04-24 07:38] LABS: African American GFR (CKD) >90 (>60 ml/min/1.73 sqM); Anion Gap 6 mmol/L; Blood Urea Nitrogen 8 mg/dL (7-17); Calcium 8.9 mg/dL (8.4-10.2); Carbon Dioxide 24 mmol/L (22-30); Chloride 112 mmol/L (98-107); Glucose 146 mg/dL (74-99); Non-African American GFR(CKD) >90 (>60 ml/min/1.73 sqM); Sodium 142 mmol/L (137-145)
[2021-04-24 07:46] LABS: Potassium 4.3 mmol/L (3.5-5.1)
[2021-04-24] MEDS: amLODIPine 5 MG TAB PO SCH (08:27)
[2021-04-24] MEDS: CLOPIDOGREL 75 MG TAB PO SCH (08:27)
[2021-04-24] MEDS: ASPIRIN 81 MG PO SCH (08:27)
[2021-04-24] MEDS: GABAPENTIN 300 MG CAP PO SCH ×3 (08:27→20:59)
[2021-04-24] MEDS: ursodioL 300 MG CAP PO SCH ×2 (08:28→20:57)
[2021-04-24] MEDS: levETIRAcetam 500 MG TAB PO SCH ×2 (08:28→20:56)
[2021-04-24 08:38] VITALS: RESP 16
--- NOTE | 2021-04-24 09:48 | P.PN ---
<Kristopher Tompkins - Last Filed: 04/24/21 12:22> Subjective Progress Note Date: 04/24/21 Hospital course: Patient is a 65-year-old female with a past medical history of hypertension, t ype II aio-emdform-lvysfegrr diabetes mellitus, recent CVA, and nicotine dependence. Patient was admitted on 04/20/21 secondary to acute delirium after reportedly being found randomly in someone's driveway in [facility] when she lives in [facility] and patient was unable to provide any history or memory leading up to how this exactly happened. Patient was recently hospitalized approximately two weeks ago secondary to memory issues and forgetfulness and was diagnosed with an acute CVA at [facility] and was later discharged home. Patient was admitted under our services with acute delirium. Urinalysis positive for infection. CT brain was negative for acute intercranial hemorrhage showing a subacute infarct of the right frontal lobe. EKG showing normal sinus rhythm at 81 bpm with no noted T-wave or ST abnormalities. Echocardiogram completed showing a normal ejection fraction greater than 55% with no significant valvular abnormalities and only mild aortic stenosis reported. Carotid Dopplers showing no hemodynamically significant stenosis. MRI brain revealing multiple areas of diffusion restriction and enhancement involving the right frontal lobe, right basal ganglia, and left parietal lobe and questionably within the left cerebellum; these findings were reported to favor ischemia although neoplasm cannot be excluded; likely subacute ischemia resulting from recent acute CVA however patient will need a short-term follow-up MRI after discharge. EEG completed resulting as an abnormal routine EEG revealing slowing over the right frontal temporal derivative consistent with patient's history of recent stroke. MRA of head negative for acute intercranial aneurysm, dissection, or stenosis. Patient scheduled for loop recorder placement with cardiology today and plan for discharge tomorrow. CT chest revealing several right-sided nodule suspicious for neoplasm and a prominent 1.2 cm pretracheal lymph node. Physical exam: Patient seen and fully evaluated at the bedside this morning. Patient alert and oriented to person, place, time, and situation upon assessment. She denies having any complaints at this time including headache, lightheadedness, dizziness, changes in her vision or hearing, chest pain or palpitations, shortness of breath, abdominal pain, nausea, vomiting, or any other complaints at this time. General: non toxic, no distress, appears at stated age Derm: warm, dry Head: atraumatic, normocephalic, symmetric Eyes: EOMI, no lid lag, anicteric sclera Mouth: no lip lesion, mucus membranes moist Cardiovascular: S1S2 reg, no murmur, positive posterior tibial pulses bilaterally, cap refill less than 2 seconds. Lungs: CTA bilateral, no rhonchi, no rales, or wheezes noted. No accessory muscle use Abdominal: soft, nontender to palpation, no guarding, no appreciable organomegaly Ext: no gross muscle atrophy, no edema, no contractures Neuro: GCS 15. Speech clear. CN II-XI grossly intact, no focal neuro deficits noted at this time. Psych: Alert, oriented, appropriate affect Plan of care: Delirium, resolved possibly secondary to new onset seizure versus acute infection with UTI -Seizure precautions, aspiration precautions, and fall precautions in place. -Continued Treatment of UTI -Neurology following. -Patient informed of [place] [employer] law stating no driving until seizure free for 6 months. Patient also instructed to avoid climbing ladders, operating dangerous or heavy machinery or unsupervised swimming until seizure free for 6 months. -Continue Keppra 500 mg every 12 hours. Intracranial lesions with several right sided pulmonary lesions suspicious for malignancy -CT chest revealing several right-sided nodule suspicious for neoplasm and a prominent 1.2 cm pretracheal lymph node. -MRI brain revealing multiple areas of diffusion restriction and enhancement involving the right frontal lobe, right basal ganglia, and left parietal lobe a nd questionably within the left cerebellum; these findings were reported to favor ischemia although neoplasm cannot be excluded; likely subacute ischemia resulting from recent acute CVA however patient will need a short-term follow-up MRI after discharg oncology e. -Consult placed for Dr. Mckeon, pulmonology and Dr. Britton, oncology Subacute stroke -CT of her brain which was negative for acute intercranial hemorrhage showing a subacute infarct of the right frontal lobe. -EKG showing normal sinus rhythm at 81 bpm with no noted T-wave or ST abnormalities. -Echocardiogram completed showing a normal ejection fraction greater than 55% with no significant valvular abnormalities and only mild aortic stenosis reported. -Carotid Dopplers showing no hemodynamically significant stenosis. -MRI brain revealing multiple areas of diffusion restriction and enhancement involving the right frontal lobe, right basal ganglia, and left parietal lobe and questionably within the left cerebellum; these findings were reported to favor ischemia although neoplasm cannot be excluded; likely subacute ischemia resulting from recent acute CVA however patient will need a short-term follow-up MRI after discharge. -EEG completed resulting as an abnormal routine EEG revealing slowing over the right frontal temporal derivative consistent with patient's history of recent stroke. -MRA of head negative for acute intercranial aneurysm, dissection, or stenosis. -Neurology following -Continue aspirin and atorvastatin -PT/OT -Continue Keppra 500 mg every 12 hours. -Cardiology also following UTI culture positive for Enterococcus faecium -Rocephin discontinued and patient started on Macrobid 100 mg twice daily 5 days per culture and sensitivity reports. Hyperlipidemia -Triglycerides 217.0, total cholesterol 220, LDL 150.6, VLDL 43.4, and HDL of 26. -Patient started on atorvastatin 80 mg nightly. -Heart healthy diet. Hypertension -Monitor vital signs and continue daily medication management. CODE STATUS: Full code DVT prophylaxis: SCDs Discussed with: Patient and RN and attempts made to call pt's [place] at 9:49 a.m. with no answer. Anticipated discharge date: Clinical course to determine Anticipated discharge place: SNF versus home with home care, patient currently declining prison facility and home care at this time. A total of 45 minutes was spent on the care of this complex patient more than 5 0% of the time was spent in counseling and care coordination. Objective - Vital Signs Vital signs: Vital Signs Temp 97.7 F 04/24/21 03:43 Pulse 53 L 04/24/21 08:00 Resp 16 04/24/21 08:00 BP 136/73 04/24/21 08:00 Pulse Ox 98 04/24/21 08:00 Intake & Output 04/23/21 04/24/21 04/24/21 18:59 06:59 18:59 Intake Total 960 400 480 Balance 960 400 480 Weight 52.2 kg Intake: Intake, IV Titration 400 Amount Sodium Chloride 0.9% 1, 400 000 ml @ 50 mls/hr IV . Q20H [facility] Rx#:[id number] Oral 960 480 Other: Voiding Method Toilet # Voids 1 1 - Labs CBC & Chem 7: 04/24/21 07:08 04/24/21 07:08 Labs: Abnormal Lab Results - Last 24 Hours (Table) 04/23/21 04/23/21 04/23/21 Range/Units 11:46 16:50 20:16 Chloride (98-107) mmol/L Creatinine (0.52-1.04) mg/dL Glucose (74-99) mg/dL POC Glucose (mg/dL) 122 H 219 H 165 H (75-99) mg/dL 04/24/21 04/24/21 Range/Units 05:54 07:08 Chloride 112 H (98-107) mmol/L Creatinine 0.34 L (0.52-1.04) mg/dL Glucose 146 H (74-99) mg/dL POC Glucose (mg/dL) 163 H (75-99) mg/dL Microbiology - Last 24 Hours (Table) 04/20/21 19:13 Urine Culture - Final Urine,Voided Enterococcus faecium <MahendraValeri sierraja - Last Filed: 04/24/21 14:18> Objective - Vital Signs Vital signs: Vital Signs Temp 97.7 F 04/24/21 03:43 Pulse 53 L 04/24/21 08:00 Resp 16 04/24/21 08:00 BP 136/73 04/24/21 08:00 Pulse Ox 98 04/24/21 08:00 Intake & Output 04/23/21 04/24/21 04/24/21 18:59 06:59 18:59 Intake Total 960 400 720 Balance 960 400 720 Weight 52.2 kg Intake: Intake, IV Titration 400 Amount Sodium Chloride 0.9% 1, 400 000 ml @ 50 mls/hr IV . Q20H [facility] Rx#:[id number] Oral 960 720 Other: Voiding Method Toilet # Voids 1 1 2 - Labs CBC & Chem 7: 04/24/21 07:08 04/24/21 07:08 Labs: Abnormal Lab Results - Last 24 Hours (Table) 04/23/21 04/23/21 04/24/21 Range/Units 16:50 20:16 05:54 Chloride (98-107) mmol/L Creatinine (0.52-1.04) mg/dL Glucose (74-99) mg/dL POC Glucose (mg/dL) 219 H 165 H 163 H (75-99) mg/dL 04/24/21 04/24/21 Range/Units 07:08 11:34 Chloride 112 H (98-107) mmol/L Creatinine 0.34 L (0.52-1.04) mg/dL Glucose 146 H (74-99) mg/dL POC Glucose (mg/dL) 169 H (75-99) mg/dL Microbiology - Last 24 Hours (Table) 04/20/21 19:13 Urine Culture - Final Urine,Voided Enterococcus faecium Assessment and Plan Assessment: I reviewed the documentation as provided by the KYLE above, who is the original author of this note. I agree with the documented assessment and plan, with the following changes:none
[2021-04-24] MEDS: LOSARTAN 50 MG TAB PO SCH ×2 (10:40→12:11)
--- NOTE | 2021-04-24 11:26 | P.PN ---
Subjective Progress Note Date: 04/24/21 HISTORY OF PRESENT ILLNESS: This is a 65-year-old female with a past medical history significant for diabetes mellitus, neuropathy, hypertension, nicotine dependence, and occasional alcohol use. Patient does not follow regularly with a radiator specialist. We have been asked to see the patient in consultation for MARCO. Patient examined at the bedside. Patient initially presented to the hospital after she drove from her house in [facility] to [facility]. Patient states that she thinks she got lost and stopped in somebody's driveway and then became disoriented and was unsure how to get back on the road. Patient denies having any weakness in any extremities. She denies any difficulties in her speech. Denies any vision changes. It is noted that the patient was hospitalized at [facility] earlier this month for possible CVA. Patient states she was brought to [place] because her son said she was confused but states "he always exaggerates things. I was fine". Patient denies having any previous cardiac history. She denies history of myocardial infection. She denies any history of atrial fibrillation. Patient currently denies any chest pain or pressure. She denies shortness of breath. Denies dizziness or lightheadedness. EKG reveals sinus mechanism with no signs of acute ischemia. Left axis deviation. CT of the brain: Hypodense area with subacute infarct in the right internal capsule right caudate nucleus and inferior anterior right frontal lobe Echocardiogram completed revealed ejection fraction greater than 55%, mild mitral regurgitation and mild tricuspid regurgitation MRI of the brain: Multiple areas of diffusion restriction and enhancement involving the right frontal lobe, right basal ganglia, and left parietal lobe and questionably within the left cerebellum. Consolation of findings favor ischemia although neoplasm not excluded. Favor subacute ischemia. There is compression of the frontal horn of right lateral ventricle. Laboratory data: WBC 7.7. Hemoglobin 11.6. Platelet count 345. Sodium 140. Potassium 3.9. BUN 16. Creatinine 0.42. Current home cardiac medications include amlodipine/olmesartan 5-40mg daily Patient examined at the bedside. Patient denies chest pain or pressure. She d enies shortness of breath. Per neurology, they do not believe MRI results reflect neoplasm but suspect CVA instead. 04/24/[address] of the chest yesterday revealing several right-sided nodule suspicious for neoplasm. Patient currently denies chest pain or pressure. She denies shortness of breath. Patient's vital signs are stable. Per nursing, patient's dose of losartan has been held for the past two days. PHYSICAL EXAM: VITAL SIGNS: Reviewed. GENERAL: Well-developed in no acute distress. HEENT: Head is normocephalic. Pupils are equal, round. Sclerae anicteric. Mucous membranes of the mouth are moist. Neck supple. No JVD or thyromegaly LUNGS: Respirations even and unlabored. Lungs essentially clear to auscultation bilaterally. HEART: Regular rate and rhythm. S1 and S2 heard. ABDOMEN: Soft. Nondistended. Nontender. EXTREMITIES: Normal range of motion. No clubbing or cyanosis. Peripheral pulses intact. No lower extremity edema NEUROLOGIC: Awake and alert. ASSESSMENT: Subacute CVA New onset seizure, per neurology Multiple right-sided pulmonary nodules, suspected neoplasm Hypertension Diabetes Nicotine dependence PLAN: Continue telemetry to rule out atrial fibrillation Due to new chest CT results, loop recorder insertion for today has been canceled. Patient will need further workup for possible neoplasm. May consider 30 day event at time of discharge Decrease losartan to 100 mg daily. Further management of blood pressure per internal medicine We will sign off. Please reconsult if needed. Nurse practitioner note has been reviewed by physician. Signing provider agrees with the documented findings, assessment, and plan of care. Objective - Vital Signs Vital signs: Vital Signs Temp 97.7 F 04/24/21 03:43 Pulse 53 L 04/24/21 08:00 Resp 16 04/24/21 08:00 BP 136/73 04/24/21 08:00 Pulse Ox 98 04/24/21 08:00 Intake & Output 04/23/21 04/24/21 04/24/21 18:59 06:59 18:59 Intake Total 960 400 480 Balance 960 400 480 Weight 52.2 kg Intake: Intake, IV Titration 400 Amount Sodium Chloride 0.9% 1, 400 000 ml @ 50 mls/hr IV . Q20H [facility] Rx#:[id number] Oral 960 480 Other: Voiding Method Toilet # Voids 1 1 - Labs CBC & Chem 7: 04/24/21 07:08 04/24/21 07:08 Labs: Abnormal Lab Results - Last 24 Hours (Table) 04/23/21 04/23/2104/23/21 Range/Units 11:46 16:50 20:16 Chloride (98-107) mmol/L Creatinine (0.52-1.04) mg/dL Glucose (74-99) mg/dL POC Glucose (mg/dL) 122 H 219 H 165 H (75-99) mg/dL 04/24/21 04/24/21 Range/Units 05:54 07:08 Chloride 112 H (98-107) mmol/L Creatinine 0.34 L (0.52-1.04) mg/dL Glucose 146 H (74-99) mg/dL POC Glucose (mg/dL) 163 H (75-99) mg/dL Microbiology - Last 24 Hours (Table) 04/20/21 19:13 Urine Culture - Final Urine,Voided Enterococcus faecium
[2021-04-24 11:35] LABS: Glucose,Whole Blood 169 mg/dL (75-99)
[2021-04-24] MEDS: NITROFURANTOIN MONOHYD/M-CRYST 100 MG CAP PO SCH ×2 (12:40→20:57)
--- NOTE | 2021-04-24 16:08 | P.CNPUL ---
History of Present Illness Consult date: 04/24/21 Requesting physician: Kathy Monsivais Reason for consult: abnormal CXR/CT Chief complaint: Abnormal computed tomography scan of the chest. History of present illness: Pulmonary consult dated 04/24/2021. 65-year-old female, evaluated for mental status changes and confusion. She apparently left her home and [place]ie Young, who was found in [facility], wasn't sure how she got there. She states that she apparently got lost. She apparently was looking for something and lost her weight. She was initially evaluated beginning on April 20, for confusion and mental status changes. More recently, the patient had a computed tomography scan of the chest which showed some abnormalities, and hence we were consulted. The patient is a heavy smoker. His been smoking for nearly 50 years. The patient states that she recently stopped smoking. She denies any pulmonary issues including s hortness of breath, cough, wheezing, or phlegm production. She also denies taking any pulmonary medications such as oxygen, or inhalers. She apparently sees a doctor who works for part of the [employer]. She apparently has a history of hypertension, diabetes, and CVA. I'm mentioning "apparently" quite a bit because she's not a particularly good historian. The CAT scan showed multiple right lower lobe pulmonary nodules, measuring between 3-4 L in size, and 1 additional nodule that was 6 mm in size in the right middle lobe. In addition, there was a 1.2 cm pretracheal lymph node. None of the abnormality seen are large enough to biopsy, and a PET scan would be very helpful in this pa tient. Recent laboratory data includes a white count 8.2, hemoglobin 12.3, hematocrit 36.2, and a platelet count 306,000. Sodium 142, potassium 4.3, chlorides 112, CO2 24, anion gap 6, BUN 8, creatinine 0.34. Review of Systems REVIEW OF SYSTEMS: CONSTITUTIONAL: Confusion, mental status changes. NEUROLOGIC: [ Negative.] HEENT: [ Negative.] CARDIAC: [Negative.] PULMONARY: [Negative.] GI: [Negative.] : [Negative.] RHEUMATOLOGIC: [ Negative.] IMMUNOLOGIC: [ Negative.] ENDOCRINE: [Negative. ] DERMATOLOGIC: [Negative.] Past Medical History Past Medical History: CVA/TIA, Diabetes Mellitus, Hypertension Additional Past Medical History / Comment(s): Stroke History of Any Multi-Drug Resistant Organisms: None Reported Past Surgical History: Section Past Anesthesia/Blood Transfusion Reactions: No Reported Reaction Past Psychological History: No Psychological Hx Reported Smoking Status: Current every day smoker Past Alcohol Use History: Occasional Past Drug Use History: None Reported - Past Family History Mother Family Medical History: Coronary Artery Disease (CAD), Diabetes Mellitus, Hypertension Father Family Medical History: Cancer Medications and Allergies Home Medications Medication Instructions Recorded Confirmed Type Aspirin EC [Ecotrin] 325 mg PO DAILY 04/20/21 04/20/21 History Gabapentin [Neurontin] 300 mg PO TID 04/20/21 04/20/21 History amLODIPine BES/OLMESARTAN MED 1 tab PO DAILY 04/20/21 04/20/21 History [amLODIPine BES/OLMESARTAN MED 5-40 mg] metFORMIN HCL 850 mg PO BID 04/20/21 04/20/21 History ursodioL [Ursodiol] 300 mg PO BID 04/20/21 04/20/21 History Allergies Allergy/AdvReac Type Severity Reaction Status Date / Time No Known Allergies Allergy Verified 04/20/21 20:06 Physical Exam Osteopathic Statement: *. No significant issues noted on an osteopathic structural exam other than those noted in the History and Physical/Consult. Vitals: Vital Signs Temp Pulse Resp BP Pulse Ox 04/24/21 08:00 53 L 16 136/73 98 04/24/21 03:43 97.7 F 53 L 18 120/59 98 04/24/21 02:00 52 L 18 04/23/21 23:16 97.8 F 52 L 18 131/67 97 04/23/21 20:00 98.1 F 54 L 18 129/65 96 04/23/21 16:00 98.2 F 51 L 16 121/58 97 Intake and Output 04/24/21 04/24/21 04/24/21 06:59 14:59 22:59 Intake Total 720 Balance 720 Intake: Oral 720 Other: Voiding Method Toilet # Voids 1 2 Weight 52.2 kg No acute distress, a bit confused, not a particularly good historian. The patient's in no acute distress. Has no respiratory issues or complaints at this time. HEENT examination is grossly unremarkable. Neck supple. Full range of motion. No adenopathy thyromegaly or neck vein distention. Cardiovascular examination reveals regular rhythm rate. S1-S2 normal. No S3 or S4. No discernible murmur noted. Heart rate 53 bpm. Lungs reveal clear breath sounds. Breath sounds are equal bilaterally. No adventitious lung sounds including wheezes rhonchi or crackles. Abdomen soft bowel sounds are heard. No masses or tenderness. Extremities are intact. No cyanosis clubbing or edema. Skin is without rash or lesion. Neurologic examination is brief but nonfocal. Results - Laboratory Findings CBC and BMP: 04/24/21 07:08 04/24/21 07:08 PT/INR, D-dimer PT 10.5 sec (9.0-12.0) 04/20/21 19:13 INR 1.0 (<1.2) 04/20/21 19:13 Abnormal lab findings: Abnormal Labs 04/20/21 04/20/21 04/20/21 19:13 19:13 19:13 ESR Chloride Carbon Dioxide 21 L BUN 20 H Creatinine Glucose 155 H POC Glucose (mg/dL) Hemoglobin A1c Calcium 10.4 H Triglycerides Cholesterol LDL Cholesterol, Calc VLDL Cholesterol, Calc HDL Cholesterol Vitamin B12 1353.0 H RBC Folate TSH <0.015 L Urine Appearance Cloudy H Urine Protein Trace H Urine Blood Small H Ur Leukocyte Esterase Large H Urine RBC 45 H Urine WBC 73 H Hyaline Casts 5 H Urine Mucus Occasional H Urine Yeast (Budding) Rare H 04/21/21 04/21/21 04/21/21 05:53 06:58 06:58 ESR Chloride 111 H Carbon Dioxide BUN Creatinine 0.42 L Glucose 139 H POC Glucose (mg/dL) 136 H Hemoglobin A1c 8.1 H Calcium Triglycerides 217.0 H Cholesterol 220 H LDL Cholesterol, Calc 150.6 H VLDL Cholesterol, Calc 43.40 H HDL Cholesterol 26.0 L Vitamin B12 RBC Folate TSH Urine Appearance Urine Protein Urine Blood Ur Leukocyte Esterase Urine RBC Urine WBC Hyaline Casts Urine Mucus Urine Yeast (Budding) 04/21/21 04/21/21 04/21/21 06:58 11:33 16:41 ESR Chloride Carbon Dioxide BUN Creatinine Glucose POC Glucose (mg/dL) 137 H 140 H Hemoglobin A1c Calcium Triglycerides Cholesterol LDL Cholesterol, Calc VLDL Cholesterol, Calc HDL Cholesterol Vitamin B12 RBC Folate 815 H TSH Urine Appearance Urine Protein Urine Blood Ur Leukocyte Esterase Urine RBC Urine WBC Hyaline Casts Urine Mucus Urine Yeast (Budding) 04/21/21 04/22/21 04/22/21 20:03 05:56 11:48 ESR Chloride Carbon Dioxide BUN Creatinine Glucose POC Glucose (mg/dL) 195 H 154 H 143 H Hemoglobin A1c Calcium Triglycerides Cholesterol LDL Cholesterol, Calc VLDL Cholesterol, Calc HDL Cholesterol Vitamin B12 RBC Folate TSH Urine Appearance Urine Protein Urine Blood Ur Leukocyte Esterase Urine RBC Urine WBC Hyaline Casts Urine Mucus Urine Yeast (Budding) 04/22/21 04/22/21 04/22/21 14:29 16:32 19:54 ESR 21 H Chloride Carbon Dioxide BUN Creatinine Glucose POC Glucose (mg/dL) 202 H 204 H Hemoglobin A1c Calcium Triglycerides Cholesterol LDL Cholesterol, Calc VLDL Cholesterol, Calc HDL Cholesterol Vitamin B12 RBC Folate TSH Urine Appearance Urine Protein Urine Blood Ur Leukocyte Esterase Urine RBC Urine WBC Hyaline Casts Urine Mucus Urine Yeast (Budding) 04/23/21 04/23/21 04/23/21 06:09 11:46 16:50 ESR Chloride Carbon Dioxide BUN Creatinine Glucose POC Glucose (mg/dL) 163 H 122 H 219 H Hemoglobin A1c Calcium Triglycerides Cholesterol LDL Cholesterol, Calc VLDL Cholesterol, Calc HDL Cholesterol Vitamin B12 RBC Folate TSH Urine Appearance Urine Protein Urine Blood Ur Leukocyte Esterase Urine RBC Urine WBC Hyaline Casts Urine Mucus Urine Yeast (Budding) 04/23/21 04/24/21 04/24/21 20:16 05:54 07:08 ESR Chloride 112 H Carbon Dioxide BUN Creatinine 0.34 L Glucose 146 H POC Glucose (mg/dL) 165 H 163 H Hemoglobin A1c Calcium Triglycerides Cholesterol LDL Cholesterol, Calc VLDL Cholesterol, Calc HDL Cholesterol Vitamin B12 RBC Folate TSH Urine Appearance Urine Protein Urine Blood Ur Leukocyte Esterase Urine RBC Urine WBC Hyaline Casts Urine Mucus Urine Yeast (Budding) 04/24/21 11:34 ESR Chloride Carbon Dioxide BUN Creatinine Glucose POC Glucose (mg/dL) 169 H Hemoglobin A1c Calcium Triglycerides Cholesterol LDL Cholesterol, Calc VLDL Cholesterol, Calc HDL Cholesterol Vitamin B12 RBC Folate TSH Urine Appearance Urine Protein Urine Blood Ur Leukocyte Esterase Urine RBC Urine WBC Hyaline Casts Urine Mucus Urine Yeast (Budding) - Diagnostic Findings Chest x-ray: image reviewed CT scan - chest: image reviewed Assessment and Plan Assessment: Multiple small pulmonary nodules, between 3 and 6 mm in size, too small to biopsy, of unclear etiology/significance. In addition, there is a pretracheal lymph node. A PET scan was recommended. History of CVA. History of diabetes mellitus. History of essential hypertension. History of ongoing tobacco use with nicotine addiction. Plan: Plan dated 04/24/2021. Lung lesions more likely represent metastatic disease in fact these represent malignancy. These lesions are hard to small to biopsy. An outpatient PET scan was recommended. I believe that's a right thing to do. The patient is a heavy smoker. She quit recently. She denies all pulmonary complaints, and does not take any medications at home for lung disease such as inhalers or oxygen. I believe the best thing for this patient to go back to her own primary doctor, so that any further evaluation can take place there. No additional recommendations are made at this time. Time with Patient: Greater than 30
[2021-04-24 16:36] LABS: Glucose,Whole Blood 105 mg/dL (75-99)
--- NOTE | 2021-04-24 17:01 | P.CONS ---
History of Present Illness - Reason for Consult Consult date: 04/24/21 questionable brain lesions Requesting physician: Kristopher Tompkins - Chief Complaint AMS, CVA - History of Present Illness Mrs. Dye is a very pleasant 65-year-old female who was found quite far away from home, unintentionally. She was not able to recall any of the circumstances surrounding the incision. She does recall recently though being diagnosed with stroke. Patient has no history of cancer, denies any pulmonary symptoms such as unusual cough or hemoptysis. Patient states that she lost quite a bit of weight last year but weight has been steady since, she has not been able to gain the weight back. Denies difficulty swallowing, changes in appetite, N,V, changes in bowel habits, no urinary symptoms. UA is positive for Enterococcus faecium. CT of the chest reveals 3 nodules as well as a 1.2 cm pretracheal lymph node. The MRI of the brain is showing some unusual lesions. Review of Systems 10 point ROS is neg except as stated in HPI Past Medical History Past Medical History: CVA/TIA, Diabetes Mellitus, Hypertension Additional Past Medical History / Comment(s): Stroke History of Any Multi-Drug Resistant Organisms: None Reported Past Surgical History: Section Past Anesthesia/Blood Transfusion Reactions: No Reported Reaction Past Psychological History: No Psychological Hx Reported Smoking Status: Current every day smoker Past Alcohol Use History: Occasional Past Drug Use History: None Reported - Past Family History Mother Family Medical History: Coronary Artery Disease (CAD), Diabetes Mellitus, Hypertension Father Family Medical History: Cancer Medications and Allergies Home Medications Medication Instructions Recorded Confirmed Type Aspirin EC [Ecotrin] 325 mg PO DAILY 04/20/21 04/20/21 History Gabapentin [Neurontin] 300 mg PO TID 04/20/21 04/20/21 History amLODIPine BES/OLMESARTAN MED 1 tab PO DAILY 04/20/21 04/20/21 History [amLODIPine BES/OLMESARTAN MED 5-40 mg] metFORMIN HCL 850 mg PO BID 04/20/21 04/20/21 History ursodioL [Ursodiol] 300 mg PO BID 04/20/21 04/20/21 History Allergies Allergy/AdvReac Type Severity Reaction Status Date / Time No Known Allergies Allergy Verified 04/20/21 20:06 Physical Exam Vitals: Vital Signs Temp Pulse Resp BP Pulse Ox 04/24/21 08:00 53 L 16 136/73 98 04/24/21 03:43 97.7 F 53 L 18 120/59 98 04/24/21 02:00 52 L 18 04/23/21 23:16 97.8 F 52 L 18 131/67 97 04/23/21 20:00 98.1 F 54 L 18 129/65 96 04/23/21 16:00 98.2 F 51 L 16 121/58 97 04/23/21 11:44 46 L 16 132/66 97 Intake and Output 04/23/21 04/24/21 04/24/21 22:59 06:59 14:59 Intake Total 640 480 Balance 640 480 Intake: Intake, IV Titration 400 Amount Sodium Chloride 0.9% 1, 400 000 ml @ 50 mls/hr IV . Q20H [facility] Rx#:[id number] Oral 240 480 Other: Voiding Method Toilet Toilet # Voids 1 1 Weight 52.2 kg - Constitutional General appearance: cooperative, no acute distress, thin (petite) - EENT Eyes: anicteric sclerae, EOMI ENT: no hard of hearing, hearing grossly normal, no NA/AT, normal oropharynx, no other, no pharyngeal erythema, no thrush, no tonsillar exudates, no tonsillar swelling - Neck Neck: no lymphadenopathy - Respiratory Respiratory: bilateral: CTA - Cardiovascular Rhythm: regular Heart sounds: normal: S1, S2 Abnormal Heart Sounds: no systolic murmur, no diastolic murmur, no rub, no S3 Gallop, no S4 Gallop, no click, no other leg Peripheral Edema: bilateral: None - Gastrointestinal General gastrointestinal: no absent bowel sounds, no decreased bowel sounds, no distended, no hepatomegaly, no hyperactive bowel sounds, normal bowel sounds, no organomegaly, no rigid, no scaphoid, soft, no splenomegaly, no tenderness, no umbilical hernia, no ventral hernia - Integumentary Integumentary: normal - Musculoskeletal Musculoskeletal: strength equal bilaterally - Psychiatric Psychiatric: A&O x's 3, appropriate affect, intact judgment & insight Results CBC & Chem 7: 04/24/21 07:08 04/24/21 07:08 Labs: Abnormal Lab Results - Last 24 Hours (Table) 04/23/21 04/23/21 04/23/21 Range/Units 11:46 16:50 20:16 Chloride (98-107) mmol/L Creatinine (0.52-1.04) mg/dL Glucose (74-99) mg/dL POC Glucose (mg/dL) 122 H 219 H 165 H (75-99) mg/dL 04/24/21 04/24/21 Range/Units 05:54 07:08 Chloride 112 H (98-107) mmol/L Creatinine 0.34 L (0.52-1.04) mg/dL Glucose 146 H (74-99) mg/dL POC Glucose (mg/dL) 163 H (75-99) mg/dL Microbiology - Last 24 Hours (Table) 04/20/21 19:13 Urine Culture - Final Urine,Voided Enterococcus faecium CT scan - chest: report reviewed MRI - head: report reviewed Assessment and Plan (1) Pulmonary nodule seen on imaging study Current Visit: Yes Status: Acute Priority: High Code(s): R91.1 - SOLITARY PULMONARY NODULE SNOMED Code(s): 904645231 (2) Abnormal brain MRI Current Visit: Yes Status: Acute Priority: High Code(s): R90.89 - OTH ABNORMAL FINDINGS ON DIAGNOSTIC IMAGING OF CNSL SNOMED Code(s): 719953171 Plan: Dr. Britton reviewed with the patient that the lesions in the brain could be related to recent stroke-did review Neurology note and his discussion with Radiologist. Pending receipt of results from recent MRI at [facility]. We have requested recent MRI of the brain from [facility] in [place]. Would prefer to have the disc so that the Radiologist can compare. We did review the report of the CT of the chest showing 3 nodules and a 1.2 cm pretracheal lymph node again, rather nonspecific, rather small to characterize. Typically primary malignancies of the brain present as a much larger solitary tumor versus multiple small ones. Lung cancer metastases to the brain will many times have surrounding vasogenic edema and patient's typically presents a little bit more ill than this patient appears but, work up/follow up is definitely needed for clarification. Recommendation would be for a PET scan outpatient or, if brain findings are not felt to be malignant, follow-up chest imaging in 2-3 months. Attests: I have seen and examined pt, performed H&P, developed impression and plan of care. Discussed with dictator, agree with documentation, documented as a scribe.
[2021-04-24 20:28] LABS: Glucose,Whole Blood 214 mg/dL (75-99)
[2021-04-24] MEDS: ATORVASTATIN 80 MG TAB PO SCH (20:56)
[2021-04-24] MEDS ORDERED: MELATONIN 3 MG TABLET PO SCH (21:00)
[2021-04-25 04:32] VITALS: TEMP 98.1
[2021-04-25] MEDS: SODIUM CHLORIDE 0.9% 1,000 ML IV SCH (04:32)
[2021-04-25 06:09] LABS: Glucose,Whole Blood 156 mg/dL (75-99)
[2021-04-25] MEDS: INSULIN ASPART (NovoLOG) 100 UNIT/ML VIAL SQ SCH (06:35)
[2021-04-25] MEDS: levETIRAcetam 500 MG TAB PO SCH (08:43)
[2021-04-25] MEDS: ASPIRIN 81 MG PO SCH (08:44)
[2021-04-25] MEDS: CLOPIDOGREL 75 MG TAB PO SCH (08:44)
[2021-04-25] MEDS: amLODIPine 5 MG TAB PO SCH (08:44)
[2021-04-25] MEDS: GABAPENTIN 300 MG CAP PO SCH (08:44)
[2021-04-25] MEDS: ursodioL 300 MG CAP PO SCH (08:45)
[2021-04-25] MEDS: NITROFURANTOIN MONOHYD/M-CRYST 100 MG CAP PO SCH (08:45)
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
[2021-04-25] MEDS ORDERED: LOSARTAN 50 MG TAB PO SCH (09:00)
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
[2021-04-25 09:49] VITALS: BP 132/61; PULSE 50
== END 2021-04-25 09:57 | disposition home or self-care (01) | DRG 100 ==
LOC: EC 18:27 → 3SCARD 20:33
PROVIDERS: ADMIT Internal Medicine; ATTEND Internal Medicine
DX: G40.209 Localization-related (focal) (partial) symptomatic epilepsy and epileptic syndromes with complex partial seizures, not intractable, without status epilepticus (principal); I63.9 Cerebral infarction, unspecified; N39.0 Urinary tract infection, site not specified; I10 Essential (primary) hypertension; F17.210 Nicotine dependence, cigarettes, uncomplicated; E11.40 Type 2 diabetes mellitus with diabetic neuropathy, unspecified; E11.65 Type 2 diabetes mellitus with hyperglycemia; R91.8 Other nonspecific abnormal finding of lung field; Z79.82 Long term (current) use of aspirin; Z79.84 Long term (current) use of oral hypoglycemic drugs; Z20.822 Contact with and (suspected) exposure to COVID-19; Z86.73 Personal history of transient ischemic attack (TIA), and cerebral infarction without residual deficits; Z82.49 Family history of ischemic heart disease and other diseases of the circulatory system; Z83.3 Family history of diabetes mellitus; R29.700 NIHSS score 0; E78.5 Hyperlipidemia, unspecified; R00.1 Bradycardia, unspecified; B95.2 Enterococcus as the cause of diseases classified elsewhere; R41.0 Disorientation, unspecified; E03.9 Hypothyroidism, unspecified; Z79.899 Other long term (current) drug therapy
CPT/HCPCS: 36415; 70450; 70544; 70553; 71250; 80048; 80053; 80061; 80306; 80320; 81001; 82607; 82746; 82747; 83036; 83519; 84439; 84443; 84484; 85025; 85027; 85610; 85652; 85730; 86038; 86235; 86255; 86334; 86789; 87077; 87086; 87186; 87635; 93005; 93306; 93880; 95819; 96360; 96361; 99285